=== PATIENT | female | born 1950 | race Two or more races ===

== ENCOUNTER 2024-01-24 13:11 | Emergency (ER) | payer OTHER, MEDICAID ==
[~2024-01-24] VITALS: Ht 157.5 cm; Wt 80.6 kg
[2024-01-24 15:43] LABS: Basophils # (auto) 0.1 10 ^3/uL (0-0.2); Basophils % (auto) 1.1 % (0.0-2.0); Eosinophils # (auto) 0.4 10 ^3/uL (0-0.8); Eosinophils % (auto) 4.5 % (0.0-7.0); Hemoglobin 13.6 g/dL (12.2-16.2); Lymphocytes # (auto) 3.7 10 ^3/uL (0.4-5.4); Lymphocytes % (auto) 38.5 % (10.0-50.0); Mean Corpuscular Hemoglobin 31.4 pg (28.0-32.0); Mean Corpuscular Hgb Conc. 33.2 g/dL (32.0-36.0); Mean Corpuscular Volume 94.7 fL (80.0-100.0); Monocytes # (auto) 0.8 10 ^3/uL (0-1.3); Monocytes % (auto) 8.7 % (0.0-12.0); Neutrophils # (auto) 4.5 10 ^3/uL (1.6-8.6); Neutrophils % (auto) 47.2 % (37.0-80.0); Red Blood Cells 4.33 10^6/uL (4.0-5.20); Red Cell Distribution Width 12.4 % (11.8-14.3); White Blood Cell 9.6 10^3/uL (4.4-10.8)
[2024-01-24 15:58] LABS: INR 0.99 (0.9-1.15); Prothrombin Time 10.4 sec (9.3-11.8)
[2024-01-24 16:03] LABS: Alanine Aminotransferase 22 U/L (7-40); Albumin 4.6 g/dL (3.2-4.8); Alkaline Phosphatase 154 U/L (46-116); Anion Gap 4 (5-15); Aspartate Aminotransferase 17 U/L (13-40); BUN/Creatinine Ratio 14.7 (10.0-20.0); Bilirubin, Total 0.3 mg/dL (0.2-1.0); Blood Urea Nitrogen 10 mg/dL (9-23); Calcium 9.8 mg/dL (8.7-10.4); Carbon Dioxide 31 mmol/L (20-30); Chloride 106 mmol/L (98-107); Glucose 139 mg/dL (74-106); Sodium 141 mmol/L (136-145); Total Protein 7.8 g/dL (5.7-8.2)
[2024-01-24] MEDS ORDERED: ACET-1304 PO (19:24)
[2024-01-24] MEDS ORDERED: BACDST PO (19:24)
[2024-01-24] MEDS ORDERED: CLIN-203 PO (19:24)
[2024-01-24 20:10] VITALS: BP 163/69; PULSE 69; RESP 18; TEMP 98; O2SAT 98
[2024-01-24] MEDS: TETANUS-DIPTH-ACEL PERTUSSIS 0.5ML SYR Tdap IM ONE (20:15)
[2024-01-24] MEDS: cefTRIAXone SOD 1,000 MG VL IM ONE (20:15)
== END 2024-01-24 20:15 | disposition home or self-care (01) ==
LOC: ER 13:11
DX: L02.211 Cutaneous abscess of abdominal wall (principal); I10 Essential (primary) hypertension; E11.9 Type 2 diabetes mellitus without complications; Z86.2 Personal history of diseases of the blood and blood-forming organs and certain disorders involving the immune mechanism
CPT/HCPCS: 36415; 74176; 80053; 83605; 85025; 85610; 85730; 87040; 90471; 90715; 96372; 99285; J0696